=== PATIENT | female | born 1960 | race Hispanic/Latino ===

== ENCOUNTER 2016-12-08 06:46 | Day surgery (SDC) | payer OTHER ==
[~2016-12-08] VITALS: Ht 170.2 cm; Wt 54.7 kg
[~2016-12-08 06:46] MED LIST: ANTIVERT12.5 MG PO; CALCIUM + D3 E1 EACH PO; IRON325 M1 PO; VITAMIN B COMP1 EACH PO
[2016-12-08 07:39] VITALS: BP 112/59
[2016-12-08] MEDS ORDERED: ENDOCET 5-3251 EACH PO (09:38)
[2016-12-08] MEDS ORDERED: IBUPROFEN800 MG PO (09:38)
[2016-12-08 11:12] VITALS: BP 131/54
[2016-12-08 12:11] VITALS: BP 122/63
[2016-12-08 14:13] VITALS: BP 131/63
[2016-12-08 16:10] VITALS: BP 117/65
[2016-12-08 17:10] VITALS: BP 128/64
== END 2016-12-08 17:10 | disposition home or self-care (01) ==
LOC: SDC 06:46
DX: C50.912 Malignant neoplasm of unspecified site of left female breast (principal); N72 Inflammatory disease of cervix uteri; N80.0 Endometriosis of uterus; Z80.3 Family history of malignant neoplasm of breast; N95.2 Postmenopausal atrophic vaginitis; K21.9 Gastro-esophageal reflux disease without esophagitis; Z92.21 Personal history of antineoplastic chemotherapy; Z92.3 Personal history of irradiation
CPT/HCPCS: 88307; J0131; J0330; J0690; J1100; J1170; J1885; J2250; J2405; J2710; J2765; J3010